=== PATIENT | female | born 1965 | race Caucasian/White ===

== ENCOUNTER 2018-12-01 02:28 | Emergency (ER) | payer OTHER ==
[~2018-12-01] VITALS: Ht 167.6 cm; Wt 55.8 kg
[~2018-12-01 02:28] MED LIST: FAMO20TA8 PO; NO MEDS; OMEP20CA11 PO; QUIN300T3 PO; SIMV10TA6 PO
[2018-12-01 02:32] VITALS: BP 96/74
[2018-12-01] MEDS ORDERED: predniSONE 20 MG TABLET ONE (02:58)
[2018-12-01] MEDS: predniSONE 20 MG TABLET PO ONE (03:02)
--- NOTE | 2018-12-01 03:06 | NUR ---
PATIENT IS ALERT AND ORIENTED X 4, VERBAL, AMBULATORY. BROUGHT FROM HOME BY FRIENDS WITH COMPLAINT OF ITCHINESS ALL OVER BODY FOR MORE THAN 2 WEEKS, AND FEELS LIKE IT IS ITCHING INSIDE HER BODY. VITAL SIGNS WNL. NO COMPLAINT OF PAIN. PREDNISONE GIVEN ORDERED. WILL CONTINUE TO MONITOR CLOSELY.
== END 2018-12-01 03:09 | disposition home or self-care (01) ==
LOC: ER 02:31
DX: L23.9 Allergic contact dermatitis, unspecified cause (principal); J45.909 Unspecified asthma, uncomplicated; K21.9 Gastro-esophageal reflux disease without esophagitis; F17.200 Nicotine dependence, unspecified, uncomplicated; Z88.1 Allergy status to other antibiotic agents; Z60.2 Problems related to living alone
CPT/HCPCS: 99283; J7512